=== PATIENT | female | born 1970 | race American Indian/Alaskan Native ===

== ENCOUNTER 2021-07-18 13:53 | Outpatient (CLI) | payer BC ==
--- NOTE | 2021-07-19 11:56 | Mammography Report ---
DIGITAL SCREENING MAMMOGRAM WITH CAD, 07/18/2021 CLINICAL INFORMATION / INDICATION: Routine screening mammography. SCREENING MAMMOGRAM TECHNIQUE: Digital bilateral 2D mammography was obtained in the craniocaudal and mediolateral obliqu e projections. This examination was interpreted with the benefit of Computer-Aided Detection analysis . COMPARISON: 01/19/14. FINDINGS: Breast Density: The breasts are almost entirely fatty. No dominant mass, suspicious calcifications, or architectural distortion in the left breast. There is a 3 cm focal nodular asymmetry in the right medial breast posteriorly at approximately the 3 :00 position 12 cm from the nipple. The patient reports a skin lesion/pimple at that site. IMPRESSION: 3 cm focal nodular asymmetry in the right medial breast at the site of a skin lesion repo rted by the patient. Clinical correlation is recommended. Right breast ultrasound may be helpful in f urther characterization. Spot compression views could be performed if necessary. Follow up recommendation: Ultrasound BI-RADS Category 0: INCOMPLETE. Needs additional imaging evaluation and/or prior mammograms for isaura rison. A "normal" or negative report should not discourage follow up or biopsy of a clinically significant f inding. A written summary of these findings will be mailed to the patient. The patient will be entered into a mammography reporting system which will generate a reminder letter for the patient's next appointmen t at the appropriate interval. [employer] recommends yearly mammograms starting at age 40 and continuing as l michelle as a woman is in good health. Breast MRI is recommended for women with an approximate 20-25% or greater lifetime risk of breast cancer, including women with a strong family history of breast or ova thao cancer or who have been treated for Hodgkin's disease. Signer Name: Anirudh Jimenez MD Signed: 07/19/2021 11:52 AM Workstation Name: [id number]
== END 2021-07-18 13:54 | disposition home or self-care (01) ==
LOC: MAMMO 13:53
DX: Z12.31 Encounter for screening mammogram for malignant neoplasm of breast (principal); N63.10 Unspecified lump in the right breast, unspecified quadrant
CPT/HCPCS: 77067